=== PATIENT | male | born 1955 | race Caucasian/White ===

== ENCOUNTER → 2020-09-22 13:47 | Outpatient (BNVA) | payer OTHER, SELFPAY | PROVIDERS: PCP Internal Medicine; Referring Provider Internal Medicine; Visit Provider Internal Medicine Cardiovascular Disease | DX: R07.89 Other chest pain (principal); I25.10 Atherosclerotic heart disease of native coronary artery without angina pectoris; I10 Essential (primary) hypertension; M25.519 Pain in unspecified shoulder; Z95.1 Presence of aortocoronary bypass graft; Z79.82 Long term (current) use of aspirin; Z79.899 Other long term (current) drug therapy | CPT/HCPCS: 99214 ==

== ENCOUNTER 2020-09-24 11:53 | Outpatient (REF) | payer OTHER, SELFPAY ==
--- NOTE | 2020-09-24 12:02 | XR_ITS ---
EXAMINATION: CHEST. LEFT SHOULDER. CLINICAL INFORMATION: Screening for respiratory tuberculosis. COMPARISON: None TECHNIQUE: Chest one view. Left shoulder 4 views. FINDINGS: CHEST: The lungs are well-expanded and clear of acute process. The heart size and pulmonary vascularity is normal. 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 There is lower cervical ventral fusion. No visible fracture seen. LEFT SHOULDER: There is no visible acute fracture, dislocation or subluxation seen the soft tissues are normal. XR/XR shoulder LT min 2V IMPRESSION: Unremarkable chest exam. Unremarkable left shoulder exam.
--- NOTE | 2020-09-24 12:02 | XR_ITS ---
EXAMINATION: CHEST. LEFT SHOULDER. CLINICAL INFORMATION: Screening for respiratory tuberculosis. COMPARISON: None TECHNIQUE: Chest one view. Left shoulder 4 views. FINDINGS: CHEST: The lungs are well-expanded and clear of acute process. The heart size and pulmonary vascularity is normal. 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 There is lower cervical ventral fusion. No visible fracture seen. LEFT SHOULDER: There is no visible acute fracture, dislocation or subluxation seen the soft tissues are normal. XR/XR chest 1V IMPRESSION: Unremarkable chest exam. Unremarkable left shoulder exam.
== END 2020-09-24 11:54 | disposition home or self-care (01) ==
LOC: HO.XRAY 11:53
PROVIDERS: PCP Internal Medicine; Visit Provider Physician Assistant
DX: Z11.1 Encounter for screening for respiratory tuberculosis (principal); M67.912 Unspecified disorder of synovium and tendon, left shoulder
CPT/HCPCS: 71045; 73030